=== PATIENT | male | born 1930 | race Caucasian/White ===

== ENCOUNTER 2018-02-15 22:04 | Emergency (ER) | payer OTHER ==
[~2018-02-15] VITALS: Ht 175.3 cm; Wt 89.5 kg
[2018-02-15 22:10] VITALS: TEMP 36.5; Ht 175.3 cm; Wt 89.5 kg
--- NOTE | 2018-02-15 23:13 | EMERGENCY ROOM VISIT NOTE ---
History Report prepared by Ann: Jeb Saenz Under the Supervision of: Dr. Irene Martinez D.O. First contact with patient: 22:56 Chief Complaint: BITE Stated Complaint: DOG BITE History of Present Illness The patient is a 87 year old male who presents to the Emergency Room with complaints of a constant right hand laceration that occurred after a recent dog bite. Patient states that he was playing fetch when the dog bit him after he tried picking up the ball. Patient is present with his and daughter. Daughter states the dog is a 3-year-old "[place]" that is up to date on their immunizations. believes the patient is up to date on his tetanus shots. Past medical history includes a "sliced finger" in 2000 and prostate cancer which he is on hormone therapy for. denies the patient taking immuno suppressant drugs. Patient states he is visiting [employer] from [place]. Patient denies any falls during the incident or history of allergies. Source of History: patient, family (Daughter), spouse/significant other Onset: Recent Position: hand (right) Quality: other (Laceration) Timing: constant Modifying Factors (Relieving): other (None) Note: Negative falls. Review of Systems See HPI for pertinent positives & negatives. A total of 10 systems reviewed and were otherwise negative. Past Medical & Surgical Medical Problems: (1) Prostate cancer Surgical Problems: (1) History of cholecystectomy Family History Cancer Diabetes mellitus Hypertension Social History Smoking Status: Never Smoker Marital Status: Housing Status: lives with family Current/Historical Medications Scheduled Amoxicillin & Pot Clavulanate (Augmentin 875-125 mg), 1 TAB PO BID Physical Exam Vital Signs Date Time Temp Pulse Resp B/P (MAP) Pulse Ox O2 Delivery O2 Flow Rate FiO2 02/16/18 00:55 64 20 175/75 96 Room Air 02/15/18 23:31 63 16 152/68 96 Room Air 02/15/18 22:10 36.5 70 18 140/69 95 Room Air Physical Exam Heart: Regular rate and rhythm. There is a normal S1 and S2 with no murmurs, clicks, or gallops appreciated. Lungs: Clear to auscultation bilaterally with no wheezes, rales, or rhonchi. Abdomen: Soft, completely nontender, nondistended, with good bowel sounds. There are no palpable pulsatile masses or hepatosplenomegaly. There is no guarding, rigidity, or rebound noted. Extremities: 2.5cm gaping laceration to the dorsal aspect of the right hand at the base of the 3rd digit otherwise no evidence of cyanosis, clubbing, or edema. There are easily palpable peripheral pulses. Skin: warm and dry with good turgor and no rashes. Medical Decision & Procedures Medications Administered Medications (Trade) Dose Ordered Sig/Anna Route Start Time Stop Time Status Last Admin Dose Admin Amoxicillin/ Clavulanate Potassium (Augmentin Tab) 875 mg NOW ONCE PO 02/15/18 23:15 02/15/18 23:16 DC 02/15/18 23:29 875 MG Procedure Location: Dorsal right hand Total length: 2.5cm Complexity: Simple Verbal consent was obtained A time out was taken and the correct patient and site identified. The skin was prepped with betadine. The target area was anesthetized with 2ml of 1% lidocaine without epinephrine. Copious irrigation was performed using sterile water. The skin was re-prepped with betadine and a sterile field set. The wound was explored for foreign bodies and none found. Examination revealed no injury to deep structures such as tendons, bone, or significant blood vessels. The fascia appears to be intact. The wound does not appear to go into the joint space. Tiny areas of ragged skin were debrided. The wound edges were approximated using 3, 5-0 simple interrupted ethilon nylon sutures. Hemostasis and excellent approximation was achieved. Antibacterial ointment and a sterile dressing applied. Detailed wound care instructions and signs and symptoms of infection reviewed with the him. No complications and the patient tolerated the procedure well. ED Course 2300: Past medical records reviewed. The patient was evaluated in room C8. A complete history and physical exam was performed. The patient has full range of motion of the hand with no obvious fractures. 2315: Lidocaine HCl 20ml INFIL and Augmentin Tab 875mg PO. The wound was repaired as described above. No foreign bodies were identified 0035: Upon reevaluation, the patient is resting comfortably. I discussed findings and results with him. He verbalized agreement of the treatment plan. He was discharged home. Medical Decision This is an 87-year-old male patient presents to the emergency department for a dog bite to the right hand. Differential Diagnosis: Animal bite, tendon injury, and retained foreign body. The wound was repaired loosely as he does run the risk of infection. He was given an oral dose of Augmentin here in the emergency department and prescribed an additional 10 day course. I strongly encouraged the family to watch for signs of cellulitis or infection. The patient is up-to-date on tetanus. The sutures will need removed in 10 days. Medication Reconcilliation Current Medication List: was personally reviewed by me Blood Pressure Screening Patient's blood pressure: Elevated blood pressure Blood pressure disposition: Elevated BP felt to be situational Impression Primary Impression: Dog bite of right hand Scribe Attestation The scribe's documentation has been prepared under my direction and personally reviewed by me in its entirety. I confirm that the note above accurately reflects all work, treatment, procedures, and medical decision making performed by me. Departure Information Dispostion Home / Self-Care Prescriptions Amoxicillin & Pot Clavulanate (Augmentin 875-125 mg) 1 Tab Tab 1 TAB PO BID, #20 TAB Prov: Irene Martinez D.O. 02/16/18 Referrals No Doctor, Assigned (PCP) Forms HOME CARE DOCUMENTATION FORM, IMPORTANT VISIT INFORMATION Patient Instructions ED Bite Dog, [facility] Additional Instructions Rest with the right hand elevated. Watch closely for signs of infection. Return to the ER if you have any fever, or signs of infection. Augmentin - every 12 hours Clean the wound wice a day and cover with antibiotic ointment. Have sutures removed in 10 days Problem Qualifiers Primary Impression: Dog bite of right hand Encounter type: initial encounter Qualified Codes: S61.451A - Open bite of right hand, initial encounter; W54.0XXA - Bitten by dog, initial encounter
[2018-02-15] MEDS ORDERED: LIDOCAINE 1% BUFFERED INJ 20 ML VIAL INFIL ONE (23:15)
[2018-02-15] MEDS ORDERED: AMOXICILLIN/CLAVULANATE TAB 875 MG TAB PO ONE (23:15)
[2018-02-16] MEDS ORDERED: AMOX875T PO (00:36)
[2018-02-16 00:55] VITALS: BP 175/75; PULSE 64; O2SAT 96
== END 2018-02-16 00:55 | disposition home or self-care (01) ==
LOC: C.EDB 22:05 → C.EDC 02-16 00:55
DX: S61.451A Open bite of right hand, initial encounter (principal); W54.0XXA Bitten by dog, initial encounter